=== PATIENT | male | born 1945 | race Caucasian/White ===

== ENCOUNTER 2018-08-16 11:25 | Inpatient (IN) | payer MEDICARE ==
[~2018-08-16] VITALS: Ht 188 cm; Wt 122.5 kg
[2018-08-16] MEDS ORDERED: SODIUM CHLORIDE 0.9% 1,000 ML IVB ONE (12:09)
[2018-08-16] MEDS ORDERED: SODIUM CHLORIDE 0.9% 1,000 ML IV ONE ×2 (12:15→12:30)
[2018-08-16] MEDS ORDERED: PANTOPRAZOLE 40 MG/10 ML VIAL IV ONE (12:15)
[2018-08-16 12:38] LABS: Eosinophils # (auto) 0 uL; Lymphocytes # (auto) 1.1 uL; Monocytes # (auto) 0.4 uL; Neutrophils % (auto) 77.5 % (37.0-80.0)
[2018-08-16 12:40] LABS: Basophils # (auto) 0.1 uL; Basophils % (auto) 0.7 % (0.0-2.0); Eosinophils % (auto) 0.1 % (0.0-7.0); Hematocrit 50.6 % (41.0-53.0); Hemoglobin 16.6 g/dL (13.5-17.5); Lymphocytes % (auto) 15.9 % (10.0-50.0); Mean Corpuscular Hemoglobin 35.8 pg (28.0-32.0); Mean Corpuscular Hgb Conc. 32.9 g/dL (32.0-36.0); Monocytes % (auto) 5.8 % (0.0-12.0); Neutrophils # (auto) 5.4 uL; Nucleated Red Blood Cells % 0.3 %; Platelet Count (auto) 165 10^3/uL (140-450); Red Blood Cells 4.64 10^6/uL (4.5-5.90); Red Cell Distribution Width 15.2 % (11.8-14.3)
[2018-08-16 12:50] LABS: INR 1.13 (0.9-1.15); Partial Thromboplastin Time 25.2 sec (23.78-33.04)
[2018-08-16] MEDS ORDERED: MORPHINE SULFATE 4 MG/ML SYR/VIAL ONE ×2 (12:50→17:24)
[2018-08-16] MEDS ORDERED: ONDANSETRON HCL 4 MG/2 ML VIAL ONE ×2 (12:50→17:26)
[2018-08-16 12:58] LABS: Alanine Aminotransferase 20 U/L (16-61); Albumin 3.5 g/dL (3.4-5.0); Anion Gap 5 (5-15); Aspartate Aminotransferase 14 U/L (15-37); BUN/Creatinine Ratio 66.3; Blood Urea Nitrogen 65 mg/dL (7-18); Calcium 8.3 mg/dL (8.5-10.1); Carbon Dioxide 27 mmol/L (21-32); Chloride 109 mmol/L (98-107); GFR African American 97 mL/min; GFR Non-African American 80 mL/min; Glucose 146 mg/dL (74-106); Magnesium 2.2 mg/dL (1.6-2.6); Potassium 5.4 mmol/L (3.5-5.1); Sodium 141 mmol/L (136-145)
[2018-08-16 13:02] LABS: Alkaline Phosphatase 41 U/L (45-117); Bilirubin, Total 0.6 mg/dL (0.2-1.0); Total Protein 6.9 g/dL (6.4-8.2)
[2018-08-16] MEDS ORDERED: ONDANSETRON HCL 4 MG/2 ML VIAL IV ONE ×3 (13:15→17:45)
[2018-08-16] MEDS ORDERED: MORPHINE SULFATE 4 MG/ML SYR/VIAL IV ONE ×3 (13:15→17:45)
[2018-08-16] MEDS ORDERED: NITROGLYCERIN 0.4 MG SL TAB SL PRN (14:45)
[2018-08-16] MEDS ORDERED: MORPHINE SULFATE 4 MG/ML SYR/VIAL IV PRN ×2 (14:45)
[2018-08-16] MEDS ORDERED: HYDROcodone-ACET 5/325MG TAB PO PRN (14:45)
[2018-08-16] MEDS ORDERED: THIAMINE 100mg/ml INJ (200mg/2ml VIAL) IV ONE (14:45)
[2018-08-16] MEDS ORDERED: FOLIC ACID 1 MG in D5W 5% 50 ML IV ONE (14:45)
[2018-08-16] MEDS ORDERED: SODIUM CHLORIDE 0.9% 1,000 ML IV SCH ×2 (14:45→16:30)
[2018-08-16] MEDS ORDERED: ONDANSETRON HCL 4 MG/2 ML VIAL IV PRN (14:45)
[2018-08-16] MEDS ORDERED: NICOTINE 14 MG/24HR TOPICAL PATCH TD SCH (15:45)
[2018-08-16 15:58] VITALS: BP 141/90
[2018-08-16 16:28] VITALS: BP 139/107
[2018-08-16] MEDS ORDERED: HEPARIN SODIUM (PORCINE) 5000 UNITS/ML 1ML VIAL ONE ×2 (17:26→17:29)
[2018-08-16] MEDS ORDERED: HEPARIN SODIUM (PORCINE) 5000 UNITS/ML 1ML VIAL IV ONE (17:30)
[2018-08-16] MEDS ORDERED: HEPARIN 1,000 UNITS/ml 1ML VIAL IV ONE (17:30)
[2018-08-16] MEDS ORDERED: NITROGLYCERIN 0.4 MG SL TAB SL ONE (17:30)
[2018-08-16] MEDS ORDERED: AMIODARONE HCL (50 MG/ ML) 3 ML VIAL IV ONE (17:46)
[2018-08-16] MEDS ORDERED: fentaNYL CITRATE 100 MCG/2 ML VL ONE (17:49)
[2018-08-16] MEDS ORDERED: ANGIOMAX 250 MG VIAL IV ONE (17:49)
[2018-08-16] MEDS ORDERED: MIDAZOLAM HCL 1MG/1ML-2 ML VIAL ONE (17:50)
[2018-08-16] MEDS ORDERED: DOPamine 1600MCG/ML D5W 0 ML IV ONE (17:50)
[2018-08-16] MEDS ORDERED: ATROPINE SULF 1 MG/10ml SYR ONE (17:50)
[2018-08-16] MEDS ORDERED: EPINEPHrine HCL 1 MG/10 ML SYRG ONE ×2 (17:50→18:12)
[2018-08-16] MEDS ORDERED: SODIUM CHL 0.9% 0 ML ONE (17:50)
[2018-08-16] MEDS ORDERED: LIDOCAINE 2%HCL (LOCAL ANESTH.) INJ 10ml MDV ONE (17:51)
[2018-08-16] MEDS ORDERED: IODIXANOL 320MG/ML 100ML BTL IV ONE (17:51)
[2018-08-16] MEDS ORDERED: HEPARIN IN NS 1000Units/500mL 0 ML ONE (17:51)
[2018-08-16] MEDS ORDERED: SODIUM BICARBONATE 8.4% INJ 50ML SYRINGE ONE ×4 (17:52→18:11)
[2018-08-16] MEDS ORDERED: EPTIFIBATIDE INJ (2MG/ML) 10ML VIAL IV ONE (17:54)
[2018-08-16] MEDS ORDERED: PROPOFOL 100 ML IV SCH (17:59)
[2018-08-16] MEDS ORDERED: MIDAZOLAM DRIP 50 mg/50mL 50 ML IV SCH (17:59)
[2018-08-16] MEDS ORDERED: IPRATROPIUM BROM 0.5 MG/2.5ML INH SOL NEB SCH (18:00)
[2018-08-16] MEDS ORDERED: EPINEPHrine HCL 1 MG/10 ML SYRG IV ONE ×3 (18:15)
[2018-08-16] MEDS ORDERED: SODIUM BICARBONATE 8.4% INJ 50ML SYRINGE IV ONE (18:15)
[2018-08-16] MEDS ORDERED: CALCIUM CHLOR(10%) 100MG/ML 10ML SYRINGE IV ONE (18:15)
[2018-08-16] MEDS ORDERED: PANTOPRAZOLE 40 MG/10 ML VIAL IV SCH (22:00)
[2018-08-17] MEDS ORDERED: FOLIC ACID 1 MG in D5W 5% 50 ML IV SCH (10:00)
[2018-08-17] MEDS ORDERED: PANTOPRAZOLE 40 MG/10 ML VIAL IV SCH (10:00)
[2018-08-17] MEDS ORDERED: THIAMINE 100mg/ml INJ (200mg/2ml VIAL) IV SCH (10:00)
== END 2018-08-16 18:16 | disposition expired ==
LOC: EDBD 11:25 → ER 11:25 → TELE 11:26
PROVIDERS: ADMIT Internal Medicine; ATTEND Internal Medicine
PROC: 5A12012 Performance of Cardiac Output, Single, Manual (ICD-10-PCS; principal; 2018-08-16)
DX: I21.19 ST elevation (STEMI) myocardial infarction involving other coronary artery of inferior wall (principal); K92.1 Melena; E66.9 Obesity, unspecified; F12.90 Cannabis use, unspecified, uncomplicated; F17.210 Nicotine dependence, cigarettes, uncomplicated; I25.10 Atherosclerotic heart disease of native coronary artery without angina pectoris; J44.9 Chronic obstructive pulmonary disease, unspecified; N28.1 Cyst of kidney, acquired; Z91.19 Patient's noncompliance with other medical treatment and regimen; Z95.5 Presence of coronary angioplasty implant and graft; Z68.34 Body mass index [BMI] 34.0-34.9, adult
CPT/HCPCS: 36415; 71045; 74176; 80053; 82962; 83690; 83735; 83880; 84443; 84484; 85025; 85610; 85730; 93005; 93306; 96361; 96365; 96375; A6257; C9113; J2001; J2250; J2405; J7060; Q9967